=== PATIENT | female | born 2000 | race African-American/Black ===

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

== ENCOUNTER → 2022-04-10 | Emergency (ER) | payer OTHER ==
[~2022-04-10] VITALS: Ht 160 cm; Wt 90.4 kg
[~2022-04-10] MED LIST: CEPH500C PO; HYDR-2761 PO; ONDA-84 PO; PHEN-318 PO
[2022-04-10 21:59] VITALS: BP 136/68
[2022-04-10 22:30] LABS: BACTERIA,URINE FEW /HPF (0-FEW); WBC,URINE TNTC /HPF (0-4)
== END | disposition left against medical advice (07) ==
LOC: ER 21:57
DX: R10.32 Left lower quadrant pain (principal); Z53.21 Procedure and treatment not carried out due to patient leaving prior to being seen by health care provider
CPT/HCPCS: 81001; 81025; 87086; 87147